=== PATIENT | male | born 1945 | race Caucasian/White ===

== ENCOUNTER 2020-06-02 12:20 | Emergency (ER) | payer MEDICARE, OTHER ==
[~2020-06-02] VITALS: Ht 185.4 cm; Wt 82.0 kg
--- NOTE | 2020-06-02 12:50 | ED Fall/Injury ---
General Chief Complaint: Trauma-Non Activation Stated Complaint: FALL; HEAD INJ Source: patient Exam Limitations: no limitations (WILDA MEZA) History of Present Illness Date Seen by Provider: Jun 02, 2020 Time Seen by Provider: 12:30 Initial Comments Pt here by private vehicle for a fall in which he hit his face just prior to arrival. 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 He denies ever losing consciousness. He reports taking aspirin intermittently, but denies any other blood thinner medications. He thinks that he may have broken his cheek bone. He denies any vision changes, hearing changes, chest pain, trouble breathing, neck or back pain. Occurred: just prior to arrival Severity: mild Injuries/Pain Location: face Context: tripped Loss of Consciousness: no loss of consciousness Associated Symptoms (Fall): No Abdominal Pain, No Chest Pain, No Dizziness, No Headache, No Nausea/Vomiting, No Shortness of Air, No Trouble Walking, No Vision Changes (WILDA MEZA) Associated Symptoms (Fall): No Chest Pain, No Confusion, No Headache, No N ausea/Vomiting, No Neck Pain, No Trouble Walking (PERI COLUNGA MD) Allergies and Home Medications Allergies Coded Allergies: No Known Drug Allergies (Unverified , 06/02/20) Home Medications Amlodipine Besylate 5 Mg Tablet, 5 MG PO DAILY, (Reported) Aspirin 81 Mg Tablet.dr, 81 MG PO DAILY, (Reported) Doxazosin Mesylate 2 Mg Tablet, 2 MG PO HS, (Reported) Lisinopril/Hydrochlorothiazide 1 Each Tablet, 1 TAB PO DAILY, (Reported) Metoprolol Tartrate 50 Mg Tablet, 50 MG PO BID, (Reported) Multivitamin 1 Each Tablet, 1 EACH PO DAILY, (Reported) Naproxen 500 Mg Tablet, 500 MG PO BID, (Reported) Potassium Chloride 20 Meq Tab.er.prt, 20 MG PO DAILY, (Reported) Simvastatin 80 Mg Tablet, 80 MG PO HS, (Reported) Spironolactone 25 Mg Tablet, 25 MG PO DAILY, (Reported) Vit A/C/E/Zinc/Selenium/Copper 1 Each Tablet, 1 EACH PO DAILY, (Reported) Patient Home Medication List Home Medication List Reviewed: Yes (PERI COLUNGA MD) Review of Systems Review of Systems Constitutional: No chills, No fever Eyes: Denies Blurred Vision, Denies Photophobia Ears, Nose, Mouth, Throat: denies ear pain, denies nose discharge, denies epistaxis, denies throat pain Respiratory: No cough, No short of breath Cardiovascular: No chest pain, No syncope Gastrointestinal: No abdominal pain, No nausea, No vomiting Musculoskeletal: No back pain, No joint pain, No neck pain Skin: lesions (Abrasion rihgt cheek) Psychiatric/Neurological: Denies Numbness, Denies Paresthesia, Denies Tingling, Denies Weakness (WILDA MEZA MED STUDALAP) Skin: change in color, lesions (Abrasion rihgt cheek) (PERI COLUNGA MD) Past Yztzzrg-Lodilk-Ajbbon Hx Past Med/Social Hx: Reviewed Nursing Past Med/Soc Hx (PERI COLUNGA MD) Family Medical History Reviewed Nursing Family Hx (PERI COLUNGA MD) No Pertinent Family Hx (PERI COLUNGA MD) Physical Exam Vital Signs Vital Signs - First Documented (PERI COLUNGA MD) Vital Signs Capillary Refill : (WILDA MEZA MED NAKIA) Height, Weight, BMI Height: '" Weight: lbs. oz. kg; BMI Method: General Appearance: WD/WN, no apparent distress HEENT: PERRL/EOMI, normal ENT inspection, TMs normal, pharynx normal, other (Abrasion with dried blood and edema to right anterior cheek ) Neck: non-tender, full range of motion, normal inspection Cardiovascular: normal peripheral pulses, regular rate, rhythm Respiratory: chest non-tender, lungs clear Gastrointestinal: normal bowel sounds, non tender, soft Back: normal inspection, no CVA tenderness, no vertebral tenderness Extremities: normal range of motion, non-tender, no pedal edema, no calf tenderness Neurologic/Psychiatric: no motor/sensory deficits, alert, normal mood/affect, o riented x 3 Skin: normal color, warm/dry (SUSANA,WILDA MED STUDEN) General Appearance: WD/WN, no apparent distress HEENT: PERRL/EOMI, other (Abrasion with dried blood and edema to right anterior cheek ) Neck: full range of motion, supple Cardiovascular: regular rate, rhythm, no murmur Respiratory: no respiratory distress Gastrointestinal: non tender, soft Extremities: normal range of motion, pelvis stable Neurologic/Psychiatric: alert, oriented x 3 Skin: warm/dry, other (Ecchymosis and abrasion to the area of the right cheek with moderate swelling) (PERI COLUNGA MD) Progress/Results/Core Measures Results/Orders My Orders Orders - PERI COLUNGA MD Ct Head/Face/Cervical Wo (06/02/20 12:36) Tdap (Boostrix) Im (06/02/20 14:15) (PERI COLUNGA MD) Vital Signs/I&O 06/02/20 06/02/20 12:25 12:25 Temp 36.6 36.6 Pulse 51 51 Resp 18 18 B/P (MAP) 183/74 (110) 183/74 (110) Pulse Ox 97 97 O2 Delivery Room Air Room Air (PERI COLUNGA MD) Progress Progress Note : Progress Note 1240: Wet 4x4 applied to dry blood in order to help soften for better visualization of abrasion. Ordered CT head/face/cervical spine. Pt denied pain medication at this time. Will reassess and monitor. (WILDA MEZA) Progress Note : Progress Note I have seen and evaluated the patient and agree with above except as indicated. I have directed the plan of care. 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 Fell onto frozen ground first onto the right knee and then to the body and face. Denies loss of consciousness but complains of fairly significant pain to the area of the right cheek and is concerned that he broke his cheekbone. Denies neck pain currently. Was able to walk afterwards and denies any significant pain in his legs or hips. Reports tetanus is up-to-date within the last 5 years. Denies nausea, vomiting, weakness, breathing problems or balance problems. Evaluation as above. Plan, CT head, face and neck and wound cleaning. Monitor patient. 1412: CT without acute findings. Patient has really thought about it now and believes that his tetanus shot is greater than 5 years so we will go ahead and do that now. Wound does not require suturing. Cleaned, covered with antibiotic ointment and dressed by nursing. Discharged home with return precautions. Patient verbalized understanding of instructions and agreement with plan. (PERI COLUNGA MD) Diagnostic Imaging Diagonstic Imaging: CT Plain Films/CT/US/NM/MRI: facial bones, c-spine, head Comments [facility] [place], [place] NAME: MULU BURTON [facility] REC#: [id number] PT STATUS: REG ER : 1945 PHYSICIAN: PERI COLUNGA MD ADMIT DATE: 06/02/20/ER FS Draft Date of Exam:06/02/20 CT HEAD/FACE/CERVICAL WO PROCEDURE: CT head, face, and cervical spine without contrast. TECHNIQUE: Multiple contiguous axial images were obtained through the head, neck, and facial bones without the use of intravenous contrast. Sagittal and coronal reformations through the cervical spine and facial bones were also performed. Auto Exposure Controls were utilized during the CT exam to meet ALARA standards for radiation dose reduction. INDICATION: Fall, abrasions, pain at the right cheek. COMPARISON: I have no relevant comparison. FINDINGS: Head: There is no hemorrhage. There are no acute extra-axial fluid collections. There is no pneumocephalus. There is no calvarial fracture deformity. No mass or mass effect. No evidence for elevated intracerebral pressures. Facial bones: The nasal bones and bony nasal septum are intact and the maxillary sinus wall is intact. Bony orbital alcantara are intact. No post septal or retrobulbar hematoma. No deformity of the globes. Zygomatic arch is intact. There is some focal soft tissue swelling inferolateral to the right orbit. No mandibular fracture identified. There is no bony dislocation to the temporomandibular joints. Maxilla and hard palate appeared intact. Pterygoid plates are intact. Visualized mastoid air cells and middle ear cavities and external auditory canals are clear. Cervical spine: There is slight grade 1 degenerative retrolisthesis of C4 on C5 and C5 on C6. These are of about 2 mm and are accompanied by advanced spondylosis and facet arthrosis believed to account for the mild malalignment. No facet joint dislocation. Central skull base is intact. No cervical fracture or paravertebral hemorrhage. Larynx and hyoid appeared intact. IMPRESSION: CT head: No hemorrhage or fracture deformity. CT facial bones: No fracture or hemo-sinus. Inferolateral periorbital soft tissue swelling over the right cheek. Underlying bony structures are normal. CT Cervical spine: Spondylosis and facet arthrosis and mild grade 1 degenerative listheses but no fracture or acute appearing abnormality. Dictated on workstation # [id number] Dict: 06/02/20 1321 Trans: 06/02/20 1333 [facility] [id number] Interpreted by: JANUARY RIDLEY Electronically signed by: (PERI COLUNGA MD) Departure Impression Primary Impression: Minor head injury Qualified Codes: S09.90XA - Unspecified injury of head, initial encounter Additional Impressions: Facial abrasion Qualified Codes: S00.81XA - Abrasion of other part of head, initial encounter Facial contusion Qualified Codes: S00.83XA - Contusion of other part of head, initial encounter Disposition: 01 HOME, SELF-CARE Condition: Improved Departure-Patient Inst. Decision time for Depature: 14:14 (PERI COLUNGA MD) Referrals: BRIEN HERMOSILLO MD (PCP/Family) Primary Care Physician Patient Instructions: Minor Head Injury (DC), Contusion (DC), Closed Head Injury (DC), Skin Abrasions (DC) Add. Discharge Instructions: All discharge instructions reviewed with patient and/or family. Voiced understanding. Your tetanus was updated today. You may use antibiotic ointment and dressing over wound to the face and change that once or twice daily as needed. It is okay to gently wash the area daily and pat it dry. You should eat a soft diet over the next several days as you will likely have some pain due to the swelling on the right side of your face. Follow-up with your doctor early next week for recheck and further evaluation as needed. Return for worse pain, vision or balance problems, dizziness, weakness, vomiting or other concerns as needed. You may take Tylenol/acetaminophen 1000 mg every 6-8 hours as needed for pain. You may use ice packs to area of concern 20 minutes/h to reduce swelling and pain over the next 1 to 2 days. Copy Copies To 1: BRIEN HERMOSILLO MD, [facility] Jun 02, 2020 12:50 PERI COLUNGA MD Jun 02, 2020 13:18
[2020-06-02] MEDS ORDERED: VIT-10 PO (13:29)
[2020-06-02] MEDS ORDERED: SPIR25TA5 PO (13:29)
[2020-06-02] MEDS ORDERED: SIMV80TA21 PO (13:29)
[2020-06-02] MEDS ORDERED: DOXA2TAB2 PO (13:29)
[2020-06-02] MEDS ORDERED: AMLO-250 PO (13:29)
[2020-06-02] MEDS ORDERED: METO50TA15 PO (13:29)
[2020-06-02] MEDS ORDERED: ASPI-479 PO (13:29)
[2020-06-02] MEDS ORDERED: MULT-567 PO (13:29)
[2020-06-02] MEDS ORDERED: POTA20TA15 PO (13:29)
[2020-06-02] MEDS ORDERED: LISI1TAB46 PO (13:29)
[2020-06-02] MEDS ORDERED: NAPR-915 PO (13:29)
--- NOTE | 2020-06-02 13:33 | Diagnostic Imaging Report ---
PROCEDURE: CT head, face, and cervical spine without contrast. TECHNIQUE: Multiple contiguous axial images were obtained through the head, neck, and facial bones without the use of intravenous contrast. Sagittal and coronal reformations through the cervical spine and facial bones were also performed. Auto Exposure Controls were utilized during the CT exam to meet ALARA standards for radiation dose reduction. INDICATION: Fall, abrasions, pain at the right cheek. COMPARISON: I have no relevant comparison. FINDINGS: Head: There is no hemorrhage. There are no acute extra-axial fluid collections. There is no pneumocephalus. There is no calvarial fracture deformity. No mass or mass effect. No evidence for elevated intracerebral pressures. Facial bones: The nasal bones and bony nasal septum are intact and the maxillary sinus wall is intact. Bony orbital alcantara are intact. No post septal or retrobulbar hematoma. No deformity of the globes. Zygomatic arch is intact. There is some focal soft tissue swelling inferolateral to the right orbit. No mandibular fracture identified. There is no bony dislocation to the temporomandibular joints. Maxilla and hard palate appeared intact. Pterygoid plates are intact. Visualized mastoid air cells and middle ear cavities and external auditory canals are clear. Cervical spine: There is slight grade 1 degenerative retrolisthesis of C4 on C5 and C5 on C6. These are of about 2 mm and are accompanied by advanced spondylosis and facet arthrosis believed to account for the mild malalignment. No facet joint dislocation. Central skull base is intact. No cervical fracture or paravertebral hemorrhage. Larynx and hyoid appeared intact. IMPRESSION: CT head: No hemorrhage or fracture deformity. CT facial bones: No fracture or hemo-sinus. Inferolateral periorbital soft tissue swelling over the right cheek. Underlying bony structures are normal. CT Cervical spine: Spondylosis and facet arthrosis and mild grade 1 degenerative listheses but no fracture or acute appearing abnormality. Dictated by: Dictated on workstation # [id number]
[2020-06-02] MEDS ORDERED: TETANUS,DIPTH,PERTUSS P/F (BOOSTRIX) 0.5 ML VIAL IM ONE (14:15)
[2020-06-02 14:43] VITALS: BP 155/82
== END 2020-06-02 14:43 | disposition home or self-care (01) ==
LOC: ER FS 12:22
DX: S00.83XA Contusion of other part of head, initial encounter (principal); S09.90XA Unspecified injury of head, initial encounter; Z23 Encounter for immunization; Z79.82 Long term (current) use of aspirin; W01.198A Fall on same level from slipping, tripping and stumbling with subsequent striking against other object, initial encounter
CPT/HCPCS: 70450; 70486; 72125; 90715